=== PATIENT | male | born 1995 | race African-American/Black ===

== ENCOUNTER 2016-10-04 11:52 | Emergency (ER) | payer SELFPAY ==
[2016-10-04 11:55] VITALS: BP 180/115; PULSE 82; RESP 20; TEMP 97.9; O2SAT 95
--- NOTE | 2016-10-04 13:32 | PD ---
HPI Chief Complaint: ENT Complaint Time Seen by Provider: 13:32 Travel History International Travel<30 days: No Contact w/Intl Traveler<30days: No Traveled to known affect area: No History of Present Illness HPI 21-year-old male with history of "borderline diabetes," hypertension, and obesity, presents to the emergency department for evaluation of a clotted left ear for the last 2 days. Patient denies any trauma. No pain. No fevers or chills. No recent illnesses. He does not recall putting anything in his ear. He has no other symptoms to report. [facility] Past Medical History Diabetes: Yes Social History Tobacco Use: No Review of Systems Except as stated in HPI: all other systems reviewed are Neg Physical Exam Narrative GENERAL: Obese male patient, ambulatory and in no acute distress SKIN: Warm and dry. HEAD: Normocephalic. Atraumatic without any mastoid tenderness to palpation EARS: Bilateral pinnae and external canals appear within normal limits. Right tympanic membranes without erythema, dullness or perforation. Left tympanic membrane view is obscured due to paperlike foreign body and soft dark cerumen. No erythema or edema. EYES: No scleral icterus. No injection or drainage. ENT: Mucosa pink and moist. No erythema or exudates. No uvular edema. No uvular , palatal, or tonsillar deviation. Airway patent. Nasal turbinates appear normal without nasal blood, purulent drainage or septal hematoma. NECK: Supple, trachea midline. No JVD or lymphadenopathy. CARDIOVASCULAR: Regular rate and rhythm without murmurs, gallops, or rubs. RESPIRATORY: Breath sounds equal bilaterally. No accessory muscle use. Data Data Last Documented VS Vital Signs Date Time Temp Pulse Resp B/P Pulse Ox O2 Delivery O2 Flow Rate FiO2 10/04/16 11:55 97.9 82 20 180/115 95 Room Air MDM Medical Decision Making Medical Screen Exam Complete: Yes Emergency Medical Condition: Yes Medical Record Reviewed: Yes Differential Diagnosis Cerumen impaction versus foreign body versus otitis media versus otitis externa versus tympanic membrane perforation Narrative Course 21-year-old male presents to the emergency department for evaluation of a clotted left ear. Patient appears well and without distress. There is a paperlike foreign body removed from the left ear using a curet. Patient tolerates this well. There is soft dark brown cerumen remaining within the canal and I have counseled patient on care. Repeat pressure is 137/94 with an appropriate sized cuff. Patient will be discharged at this time. Diagnosis Primary Impression: SUPERFICIAL FOREIGN BODY OF LEFT EAR, INITIAL ENCOUNTER Additional Impressions: Impacted cerumen of left ear Hypertension Qualified Code: I10 - Essential hypertension Referrals: Primary Care Physician Patient Instructions: Cerumen Impaction (ED), General Instructions Additional Instructions: [id number] Debrox drops as directed on the package to the affected ear Follow-up with primary care provider Do not foreign bodies in your ear. Do not use Q-tips Return immediately to the emergency department with any acute worsening of symptoms Med/Other Pt SpecificInfo: No Meds Exist/No RX given Disposition: 01 DISCHARGE HOME Condition: Stable Francisca Monk Oct 04, 2016 13:32
[2016-10-04 14:11] VITALS: BP 162/78
== END 2016-10-04 14:12 | disposition home or self-care (01) ==
LOC: NETRI 11:52
DX: H61.22 Impacted cerumen, left ear (principal); S00.452A Superficial foreign body of left ear, initial encounter; I10 Essential (primary) hypertension; E11.9 Type 2 diabetes mellitus without complications; E66.9 Obesity, unspecified; X58.XXXA Exposure to other specified factors, initial encounter
CPT/HCPCS: 99282